=== PATIENT | male | born 1985 | race Caucasian/White ===

== ENCOUNTER 2016-12-06 20:47 | Emergency (ER) | payer OTHER ==
[~2016-12-06] VITALS: Ht 188 cm; Wt 133.7 kg
[~2016-12-06 20:47] MED LIST: CLEOCIN150 MG PO; NOHOMEMEDS; PEPCID20 MG PO; PREDNISONE20 MG PO
[2016-12-06 21:33] LABS: MCH 31.7 PG (29.0-34.0); MCHC 34.5 G/DL (30.0-36.0); MEAN PLAT.VOLUME 9.2 uM^3 (9.0-12.4); PLATELET COUNT 281 K/uL (156-360); RBC DIS.WIDTH-CV 13.1 % (11.8-14.6); RBC DIS.WIDTH-SD 43.8 % (39-53); RED BLOOD COUNT 4.35 M/uL (4.00-5.50); WHITE BLOOD COUNT 12.7 K/uL (4.1-10.2)
[2016-12-06 21:44] LABS: ANION GAP 11 MEQ/L (2-14); CHLORIDE 99 mEq/L (99-109); GLUCOSE 95 mg/dL (70-99); POTASSIUM 3.7 mEq/L (3.7-5.4); SODIUM 134 mEq/L (136-147)
[2016-12-06 21:46] LABS: GFR ESTIMATE (CALCULATED) > 59 mL/min/
[2016-12-06 21:47] LABS: UREA NITROGEN (BUN) 15 mg/dL (9-23)
[2016-12-06 22:04] LABS: D-DIMER ELISA 0.66 mg/L FEU (< 0.57)
[2016-12-07 01:06] VITALS: BP 124/59
== END 2016-12-07 01:08 | disposition home or self-care (01) ==
LOC: EME 20:47
DX: R06.02 Shortness of breath (principal); R22.43 Localized swelling, mass and lump, lower limb, bilateral; F32.9 Major depressive disorder, single episode, unspecified
CPT/HCPCS: 71020; 71275; 80048; 83880; 85027; 85379; 99281; 99284; J1200; J7030